=== PATIENT | female | born 2000 | race Caucasian/White ===

== ENCOUNTER 2022-03-15 03:25 | Emergency (ER) | payer BC, OTHER ==
[~2022-03-15] VITALS: Ht 165.1 cm; Wt 68.5 kg
[2022-03-15 03:25] VITALS: BP 139/74
[2022-03-15] MEDS ORDERED: FAMO10TA53 PO (03:31)
[2022-03-15] MEDS ORDERED: ALEV220T22 PO (03:31)
[2022-03-15] MEDS ORDERED: META400T PO (05:10)
[2022-03-15] MEDS ORDERED: IBUP-1022 PO (05:10)
== END 2022-03-15 05:35 | disposition home or self-care (01) ==
LOC: M ED 03:25
DX: M26.69 Other specified disorders of temporomandibular joint (principal); Z88.1 Allergy status to other antibiotic agents; Z88.2 Allergy status to sulfonamides

== ENCOUNTER 2022-05-20 21:19 | Emergency (ER) | payer OTHER ==
[~2022-05-20] VITALS: Ht 165.1 cm; Wt 69.5 kg
[~2022-05-20 21:19] MED LIST: ALEV220T22 PO; FAMO10TA53 PO; IBUP-1022 PO; META400T PO
[2022-05-21] MEDS ORDERED: KETOROLAC 30 MG/ML 1ML VIAL IM ONE (06:10)
[2022-05-21] MEDS ORDERED: methocarbamoL 500 MG TAB PO ONE (06:15)
[2022-05-21 06:44] LABS: BASO % 0.4 % (0.0-1.0); EOS # 0.1 10^3/uL (0.0-0.5); EOS % 0.9 % (0.0-3.0); HEMATOCRIT 39.9 % (36.0-47.0); HEMOGLOBIN 13.8 g/dl (12.0-15.5); LYMPH # 1.9 10^3/uL (1.5-5.0); LYMPH % 18.7 % (24.0-44.0); MEAN CORPUSCULAR HGB CONC 34.6 g/dl (32.0-36.5); MEAN CORPUSCULAR VOLUME 92.6 fl (80.0-96.0); MONO # 0.8 10^3/uL (0.0-0.8); NEUTROPHILS # 7.3 10^3/uL (1.5-8.5); NEUTROPHILS % 71.8 % (36.0-66.0); PLATELET COUNT, AUTOMATED 239 10^3/uL (150-450); RED BLOOD COUNT 4.31 10^6/uL (4.00-5.40); WHITE BLOOD COUNT 10.2 10^3/uL (4.0-10.0)
[2022-05-21 07:30] VITALS: BP 127/71
[2022-05-21] MEDS ORDERED: IBUPROFEN 100MG 5ML SUSP UDC DYE FREE PO ONE (08:10)
[2022-05-21] MEDS ORDERED: METH-1164 PO (08:11)
[2022-05-21] MEDS ORDERED: PERC5TAB12 PO (09:31)
[2022-05-21] MEDS ORDERED: PERCOCET 5MG/325MG TAB PO ONE (09:40)
[2022-05-21] MEDS ORDERED: ONDANSETRON 4MG ORAL DISINTEGRATING TAB PO ONE (09:40)
== END 2022-05-21 10:20 | disposition home or self-care (01) ==
LOC: M ED 21:19
DX: M26.602 Left temporomandibular joint disorder, unspecified (principal)
CPT/HCPCS: 36415; 70330; 80047; 84702; 85025; 96372; 99284; J1885

== ENCOUNTER → 2025-07-21 | Outpatient (REF) | payer OTHER ==
[~2025-07-21] MED LIST changes: -IBUP-1022 PO; +IBUP600T42 PO; +METH-1164 PO; +PERC5TAB12 PO
[2025-07-21 18:32] LABS: BASO # 0.0 10^3/uL (0.0-0.2); BASO % 0.3 % (0.0-1.0); EOS # 0.1 10^3/uL (0.0-0.5); EOS % 1.0 % (0.0-3.0); LYMPH # 1.7 10^3/uL (1.5-5.0); LYMPH % 19.1 % (24.0-44.0); MONO # 0.6 10^3/uL (0.0-0.8); MONO % 6.3 % (2.0-8.0); NEUTROPHILS # 6.3 10^3/uL (1.5-8.5); NEUTROPHILS % 73.1 % (36.0-66.0); PLATELET COUNT, AUTOMATED 234 10^3/uL (150-450)
[2025-07-21 18:33] LABS: C REACTIVE PROTEIN QUANTITATIV < 0.50 MG/DL (<1.0)
[2025-07-21 18:35] LABS: ALT/SGPT 14 U/L (7.0-40); AST/SGOT 15 U/L (<34); CALCIUM LEVEL 9.4 MG/DL (8.5-10.1); CARBON DIOXIDE LEVEL 28 MMOL/L (20-31); CHLORIDE LEVEL 103 MMOL/L (98-107); CREATININE FOR GFR 0.86 MG/DL (0.55-1.30); GLOMERULAR FILTRATION RATE > 90.0 (>60); POTASSIUM SERUM 4.3 MMOL/L (3.5-5.1); SODIUM LEVEL 141 MMOL/L (136-145)
[2025-07-21 18:43] LABS: ERYTHROCYTE SEDIMENTATION RATE 3 mm/hr (0-20)
[2025-07-21 18:46] LABS: HCG, SERUM QUALITATIVE NEGATIVE (NEGATIVE)
== END ==
LOC: M SFHCLERA 12:05
PROVIDERS: ATTEND Internal Medicine
DX: R10.84 Generalized abdominal pain (principal)